=== PATIENT | male | born 1995 | race African-American/Black ===

== ENCOUNTER 2017-01-22 13:09 | Emergency (ER) | payer OTHER, SELFPAY ==
[2017-01-22] MEDS ORDERED: diphenhydrAMINE HCl 25 MG CAP ONE (13:45)
[2017-01-22] MEDS ORDERED: Cephalexin 500 MG CAP ONE (13:47)
== END 2017-01-22 13:50 | disposition home or self-care (01) ==
LOC: MADERS 13:09
DX: T63.441A Toxic effect of venom of bees, accidental (unintentional), initial encounter (principal); J45.909 Unspecified asthma, uncomplicated; Z79.899 Other long term (current) drug therapy
CPT/HCPCS: 99282

== ENCOUNTER 2017-04-21 12:11 | Emergency (ER) | payer SELFPAY ==
[2017-04-21] MEDS ORDERED: Dexamethasone 4 MG TAB ONE (12:35)
[2017-04-21] MEDS ORDERED: Metoclopramide HCl 10 MG TAB ONE (12:35)
[2017-04-21] MEDS ORDERED: diphenhydrAMINE HCl 25 MG CAP ONE (12:35)
[2017-04-21] MEDS ORDERED: Ketorolac Tromethamine 60 MG/2 ML VIAL ONE (12:35)
== END 2017-04-21 13:00 | disposition home or self-care (01) ==
LOC: MADERS 12:11
DX: R51 Headache (principal); J45.909 Unspecified asthma, uncomplicated
CPT/HCPCS: 96372; J1885; J8540

== ENCOUNTER 2017-07-29 21:56 | Emergency (ER) | payer SELFPAY ==
[2017-07-29] MEDS ORDERED: predniSONE 20 MG TAB ONE (22:09)
[2017-07-29] MEDS ORDERED: Famotidine 20 MG TAB ONE (22:09)
== END 2017-07-29 22:17 | disposition home or self-care (01) ==
LOC: MADERS 21:56
DX: T78.40XA Allergy, unspecified, initial encounter (principal); J45.909 Unspecified asthma, uncomplicated
CPT/HCPCS: 99282; J7506

== ENCOUNTER 2017-08-16 13:56 | Emergency (ER) | payer SELFPAY ==
[2017-08-16] MEDS ORDERED: EPINEPHrine 1 MG/ML AMP ONE (14:18)
[2017-08-16] MEDS ORDERED: methylPREDNISolone Sod Succ/PF 125 MG/2 ML VIAL ONE (14:18)
== END 2017-08-16 14:45 | disposition home or self-care (01) ==
LOC: MADERS 13:56
DX: J45.909 Unspecified asthma, uncomplicated (principal)
CPT/HCPCS: 96372; J0171; J2930; J7620

== ENCOUNTER 2017-09-08 14:07 | Emergency (ER) | payer SELFPAY ==
[~2017-09-08 14:07] MED LIST: Lidocaine 1% 20 ML MDV ONE
[2017-09-08 15:43] LABS: Bilirubin Small (Negative); Blood, Urine Negative (Negative); Clarity Clear (Clear); Glucose, Urine (Dipstick) Negative (Negative); Leukocyte Negative (Negative); Nitrite Negative (Negative); Protein, Urine (Dipstick) 30 mg/dL (Neg-Trace); Urobilinogen > or = 8.0 mg/dL (0.2-1.0)
[2017-09-08] MEDS ORDERED: cefTRIAXone\\ROCEPHIN 1 GM VIAL ONE (15:46)
[2017-09-08 16:06] LABS: Bacteria/HPF Rare-Few HPF (None Seen); Crystals/HPF 2+ AMORPH PHOS HPF (Negative); Other Casts/LPF 7-10 FINELY GRAN LPF (0-3 Hyaline); RBC/HPF None Seen HPF (0-3); WBC/HPF None Seen HPF (0-3)
[2017-09-10 19:51] LABS: Chlamydia by PCR Not Detected (NotDetected); GC by PCR Not Detected (NotDetected)
== END 2017-09-08 15:53 | disposition home or self-care (01) ==
LOC: MADERS 14:07
DX: A56.01 Chlamydial cystitis and urethritis (principal); A60.00 Herpesviral infection of urogenital system, unspecified; J45.909 Unspecified asthma, uncomplicated
CPT/HCPCS: 81003; 81015; 87491; 87591; 96372; J0696; J2001

== ENCOUNTER 2017-12-31 11:32 | Emergency (ER) | payer SELFPAY | END 2017-12-31 13:40 | disposition left against medical advice (07) | LOC: MADERS 11:32 | DX: Z53.21 Procedure and treatment not carried out due to patient leaving prior to being seen by health care provider (principal) ==

== ENCOUNTER 2018-01-01 11:00 | Emergency (ER) | payer SELFPAY ==
[2018-01-01] MEDS ORDERED: predniSONE 20 MG TAB ONE (11:11)
== END 2018-01-01 11:18 | disposition home or self-care (01) ==
LOC: MADERS 11:00
DX: J45.909 Unspecified asthma, uncomplicated (principal); Z79.899 Other long term (current) drug therapy
CPT/HCPCS: 99284; J7506

== ENCOUNTER 2018-01-30 11:28 | Emergency (ER) | payer SELFPAY | END 2018-01-30 11:48 | disposition home or self-care (01) | LOC: MADERS 11:28 | DX: L50.9 Urticaria, unspecified (principal); J45.909 Unspecified asthma, uncomplicated; Z79.899 Other long term (current) drug therapy | CPT/HCPCS: 99282 ==

== ENCOUNTER 2018-02-22 17:52 | Emergency (ER) | payer SELFPAY ==
[2018-02-22] MEDS ORDERED: predniSONE 20 MG TAB ONE ×2 (18:27→18:28)
== END 2018-02-22 19:14 | disposition home or self-care (01) ==
LOC: MADERS 17:52
DX: J45.909 Unspecified asthma, uncomplicated (principal)
CPT/HCPCS: 94640; J7506; J7620

== ENCOUNTER 2018-04-30 16:59 | Emergency (ER) | payer SELFPAY | END 2018-04-30 17:20 | disposition home or self-care (01) | LOC: MADERS 16:59 | DX: K52.9 Noninfective gastroenteritis and colitis, unspecified (principal); J45.909 Unspecified asthma, uncomplicated | CPT/HCPCS: 99283 ==

== ENCOUNTER 2018-06-11 13:50 | Emergency (ER) | payer SELFPAY ==
[2018-06-11] MEDS ORDERED: Ibuprofen 800 MG TAB ONE (14:36)
[2018-06-11] MEDS ORDERED: Amoxicillin/Potassium Clav 875 MG TAB ONE (14:38)
== END 2018-06-11 14:45 | disposition home or self-care (01) ==
LOC: MADERS 13:50
DX: K02.9 Dental caries, unspecified (principal); J45.909 Unspecified asthma, uncomplicated; Z79.899 Other long term (current) drug therapy
CPT/HCPCS: 99283

== ENCOUNTER 2018-08-04 17:22 | Emergency (ER) | payer SELFPAY | END 2018-08-04 17:45 | disposition home or self-care (01) | LOC: MADERS 17:22 | DX: J45.909 Unspecified asthma, uncomplicated (principal); Z76.0 Encounter for issue of repeat prescription | CPT/HCPCS: 99281 ==

== ENCOUNTER 2018-08-30 19:48 | Emergency (ER) | payer SELFPAY | END 2018-08-30 21:00 | disposition home or self-care (01) | LOC: MADERS 19:48 | DX: J06.9 Acute upper respiratory infection, unspecified (principal); R04.0 Epistaxis; J45.909 Unspecified asthma, uncomplicated; Z79.899 Other long term (current) drug therapy | CPT/HCPCS: 99281 ==

== ENCOUNTER 2019-06-20 13:04 | Emergency (ER) | payer BC | END 2019-06-20 14:06 | disposition home or self-care (01) | LOC: MADERS 13:04 | DX: B34.9 Viral infection, unspecified (principal); J45.909 Unspecified asthma, uncomplicated; Z79.899 Other long term (current) drug therapy | CPT/HCPCS: 99284 ==

== ENCOUNTER 2020-12-27 06:13 | Emergency (ER) | payer BC ==
[2020-12-27] MEDS ORDERED: predniSONE 20 MG TAB ONE (06:44)
== END 2020-12-27 06:51 | disposition home or self-care (01) ==
LOC: MADERS 06:13
DX: J45.21 Mild intermittent asthma with (acute) exacerbation (principal)
CPT/HCPCS: 99284; J7512

== ENCOUNTER 2021-11-13 10:00 | Emergency (ER) | payer BC ==
[2021-11-13] MEDS ORDERED: Acetaminophen 500 MG TAB ONE (10:37)
== END 2021-11-13 10:45 | disposition home or self-care (01) ==
LOC: MADERS 10:00
DX: J11.1 Influenza due to unidentified influenza virus with other respiratory manifestations (principal); J45.909 Unspecified asthma, uncomplicated; Z79.899 Other long term (current) drug therapy
CPT/HCPCS: 87804; 99283

== ENCOUNTER 2022-11-10 09:47 | Emergency (ER) | payer BC ==
[2022-11-10] MEDS ORDERED: Ipratropium/Albuterol 3 ML NEB ONE (10:24)
[2022-11-10] MEDS ORDERED: predniSONE 10 MG TAB ONE (10:24)
[2022-11-10] MEDS ORDERED: predniSONE 20 MG TAB ONE (10:24)
== END 2022-11-10 10:56 | disposition home or self-care (01) ==
LOC: MADERS 09:47
DX: J45.901 Unspecified asthma with (acute) exacerbation (principal); F17.290 Nicotine dependence, other tobacco product, uncomplicated
CPT/HCPCS: J7512; J7620

== ENCOUNTER 2023-08-19 17:40 | Emergency (ER) | payer SELFPAY ==
[2023-08-19 18:09] LABS: Bacteria/HPF Rare-Few HPF (None Seen); Bilirubin Negative (Negative); Blood, Urine Negative (Negative); CAUTI Indications for Culture Dysuria,urgency,freq; Clarity Cloudy (Clear); Glucose, Urine (Dipstick) Negative (Negative); Ketone, Urine Negative (Negative); Leukocyte Large (Negative); Nitrite Negative (Negative); Protein, Urine (Dipstick) 30 mg/dL (Neg-Trace); RBC/HPF 0-3 HPF (0-3); Sperm/HPF Rare HPF (None Seen); Squamous Epithelial 0-3 HPF (0-3); Urobilinogen > or = 8.0 mg/dL (Less than 2); WBC/HPF Greater Than 50 HPF (0-3); pH, Urine 7.5 (5.0-9.0)
[2023-08-19] MEDS ORDERED: Doxycycline 100 MG CAP ONE (18:09)
[2023-08-19 18:10] LABS: Urine Culture Reflex Yes Yes
[2023-08-19] MEDS ORDERED: cefTRIAXone (ROCEPHIN) 500 MG VIAL ONE (18:10)
[2023-08-20 12:57] LABS: Chlam.trachomatis by PCR,Urine Not Detected (NotDetected); GC N.gonorrhoeae PCR,UrineVOID DETECTED (NotDetected)
== END 2023-08-19 18:38 | disposition home or self-care (01) ==
LOC: MADERS 17:40
DX: N34.1 Nonspecific urethritis (principal)
CPT/HCPCS: 81001; 87086; 87491; 87591; 96372; 99283; J0696

== ENCOUNTER 2023-12-24 07:11 | Emergency (ER) | payer SELFPAY | END 2023-12-24 07:49 | disposition home or self-care (01) | LOC: MADERS 07:11 | DX: L50.9 Urticaria, unspecified (principal); J45.909 Unspecified asthma, uncomplicated; F17.290 Nicotine dependence, other tobacco product, uncomplicated | CPT/HCPCS: 99283 ==

== ENCOUNTER 2024-05-11 20:16 | Emergency (ER) | payer SELFPAY ==
[2024-05-11] MEDS ORDERED: Albuterol 2.5 MG (3 mL) NEB ONE (20:35)
[2024-05-11] MEDS ORDERED: Magnesium 2 GM/50 ML BAG (IN WATER) ONE (20:36)
[2024-05-11] MEDS ORDERED: methylPREDNISolone Sod Succ/PF 125 MG/2 ML VIAL ONE (20:36)
[2024-05-11] MEDS ORDERED: Ipratropium/Albuterol 3 ML NEB ONE (20:36)
[2024-05-11] MEDS ORDERED: Famotidine/PF 20 mg/2ml Vial ONE (20:37)
[2024-05-11 21:22] LABS: Band 4 % (5-11); Eosinophils 5 % (0-10); Lymphocytes 31 % (21-51); MDiff Complete? YES; Monocytes 6 % (0-10); Neutrophil 53 % (42-75)
[2024-05-11 21:23] LABS: Hematocrit 57.6 % (42.0-52.0); Hemoglobin 17.8 g/dL (14.0-18.0); Mean Corpuscular HGB CONC 30.8 g/dL (32.0-36.0); Mean Corpuscular Volume 94.2 fl (78.0-98.0); Mean Platelet Volume 7.7 fL (7.4-10.4); Platelet Count 235 10x3/uL (130-400); RBC Distribution Width 11.9 % (11.5-14.5); Red Blood Cell (RBC) Count 6.12 mill/uL (4.70-6.10); White Blood Cell (WBC) Count 5.6 10x3/uL (4.8-10.8)
[2024-05-11 21:24] LABS: Anion Gap 14 mmol/L (10-20); BUN (Urea Nitrogen) 17 mg/dL (8.9-20.6); Calc. Creatinine Clearance 0 mL/min (70-130); Calcium 8.5 mg/dL (7.8-10.44); Carbon Dioxide 23 mmol/L (22-29); Chloride 106 mmol/L (98-107); Estimated GFR 101; Glucose 110 mg/dL (70-105); Potassium 3.4 mmol/L (3.5-5.1); Sodium 140 mmol/L (136-145)
[2024-05-11 21:31] LABS: Troponin I Less than 0.010 ng/mL (< 0.028)
== END 2024-05-11 22:00 | disposition home or self-care (01) ==
LOC: MADERS 20:16
DX: J45.901 Unspecified asthma with (acute) exacerbation (principal); F17.290 Nicotine dependence, other tobacco product, uncomplicated
CPT/HCPCS: 71045; 80048; 84484; 85025; 85379; 93005; 96365; 96375; J2919; J3475; J3490; J7611; J7620

== ENCOUNTER 2025-08-13 15:47 | Emergency (ER) | payer BC ==
[~2025-08-13 15:47] MED LIST changes: +Iopamidol 370 76% 100 ML VIAL ONE; -Lidocaine 1% 20 ML MDV ONE
[2025-08-13] MEDS ORDERED: diphenhydrAMINE 50 MG/ML VIAL ONE (16:17)
[2025-08-13] MEDS ORDERED: Famotidine/PF 20 mg/2ml Vial ONE (16:18)
[2025-08-13 16:36] LABS: ALT (SGPT) 20 U/L (Less than 45); AST (SGOT) 27 U/L (11-34); Albumin 3.7 g/dL (3.1-4.5); Alkaline Phosphatase 47 U/L (40-110); Anion Gap 14 mmol/L (10-20); BUN (Urea Nitrogen) 13 mg/dL (8.9-20.6); Bilirubin, Total 0.5 mg/dL (0.3-1.2); Calc. Creatinine Clearance 0 mL/min (70-130); Calcium 8.0 mg/dL (7.8-10.44); Carbon Dioxide 23 mmol/L (22-29); Chloride 107 mmol/L (98-107); Globulin 2.9 g/dL (2.4-3.5); Glucose 118 mg/dL (70-105); Potassium 3.5 mmol/L (3.5-5.1); Sodium 140 mmol/L (136-145)
[2025-08-13 16:38] LABS: Troponin I Less than 0.010 ng/mL (< 0.028)
[2025-08-13 16:44] LABS: Hematocrit 51.3 % (42.0-52.0); Hemoglobin 16.1 g/dL (14.0-18.0); MDiff Complete? YES; Mean Corpuscular Hemoglobin 30.1 pg (27.0-31.0); Mean Corpuscular Volume 96.2 fl (78.0-98.0); Platelet Adequacy Comment Appears Adequate; Platelet Count 228 10x3/uL (130-400); Red Blood Cell (RBC) Count 5.34 mill/uL (4.70-6.10); White Blood Cell (WBC) Count 4.4 10x3/uL (4.8-10.8)
== END 2025-08-13 18:13 | disposition home or self-care (01) ==
LOC: MADERS 15:47
DX: S09.90XA Unspecified injury of head, initial encounter (principal); J45.909 Unspecified asthma, uncomplicated; W18.30XA Fall on same level, unspecified, initial encounter; Z79.51 Long term (current) use of inhaled steroids
CPT/HCPCS: 70450; 71275; 72125; 80053; 83605; 84484; 85025; 93005; 94760; 96374; 96375; J1200; J1308; J2919; J7120; Q9967